=== PATIENT | male | born 1990 | race Asian ===

== ENCOUNTER 2018-09-29 00:02 | Inpatient (IN) | payer MEDICAID ==
[~2018-09-29] VITALS: Ht 175.3 cm; Wt 55.1 kg
[2018-09-29] VITALS (24 sets, daily range): BP systolic 102–148; BP diastolic 59–92
--- NOTE | 2018-09-29 | NUR ---
Received patient in room ICU 2044 as a transfer from [facility]. I have received report from NARCISO Connolly and had the opportunity to ask questions and assume patient care.
[2018-09-29] MEDS ORDERED: potassium Cl 20 mEq SR tablet PO PRN ×2 (00:05)
[2018-09-29] MEDS ORDERED: ondansetron/PF 4mg/2ml inj IV PRN (00:05)
[2018-09-29] MEDS: K, MAG and/or Phos replacement - Verify level? MC SCH ×2 (00:05→08:00)
[2018-09-29] MEDS ORDERED: magnesium hydroxide 30ml (MOM) UD suspension PO PRN (00:05)
[2018-09-29] MEDS ORDERED: acetaminophen 325mg tablet PO PRN ×2 (00:05)
[2018-09-29] MEDS ORDERED: NO HOME MEDS (00:28)
[2018-09-29] MEDS: sodium bicarbonate (8.4%) inj. 75 MEQ in dextrose 5% water 500ml 500 ML IV SCH ×4 (00:40→18:59)
[2018-09-29] MEDS ORDERED: LORazepam 2 mg/ml vial ONE (00:52)
[2018-09-29] MEDS ORDERED: LORazepam 2 mg/ml vial IV PRN (00:55)
[2018-09-29] MEDS ORDERED: LORazepam 2 mg/ml vial IM ONE (00:55)
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
--- NOTE | 2018-09-29 01:00 | NUR ---
Patient had a seizure at this time lasting approximately 60 seconds. Tonic clonic seizure, full body rapid rigid movement, witnessed from start to finish. Postictal period lasting for several minutes. Patient remains nonverbal and disoriented. Appears to be having visual hallucinations, pointing at random areas in the room. Vinayak Contreras NP notified about the seizure, Ativan order received and given to patient. Seizure precautions initiated. Sitter at bedside. Will continue to monitor
[2018-09-29 01:17] LABS: BASOPHILS % (AUTO) 0.2 % (0-1); EOSINOPHILS % (AUTO) 0 % (0-6); HEMATOCRIT 44.9 % (42.0-52.0); HEMOGLOBIN 15.5 g/dl (14.0-17.9); LYMPHOCYTES # (AUTO) 0.9 X10'3 (1.1-4.8); LYMPHOCYTES % (AUTO) 9.6 % (21-51); MEAN CORPUSCULAR HEMOGLOBIN 31.1 PG (27.0-31.0); MEAN CORPUSCULAR HGB CONC 34.5 g/dL (33.0-36.5); MEAN CORPUSCULAR VOLUME 90.3 FL (78-98); MEAN PLATELET VOLUME 8.6 FL (7.4-10.4); MONOCYTES # (AUTO) 0.5 X10'3 (0-0.9); MONOCYTES % (AUTO) 4.6 % (2-12); NEUTROPHILS # (AUTO) 8.4 X10'3 (1.8-7.7); NEUTROPHILS % (AUTO) 85.6 % (42-75); PLATELET COUNT 250 X10'3 (140-440); RED BLOOD COUNT 4.97 X10'6 (4.70-6.10); WHITE BLOOD COUNT 9.8 X10'3 (4.5-11.0)
[2018-09-29 01:26] LABS: PARTIAL THROMBOPLASTIN TIME 25 SECONDS (22-32)
[2018-09-29 01:27] LABS: ALANINE AMINOTRANSFERASE 22 U/L (12-78); ALBUMIN 4.5 G/DL (3.4-5.0); ALBUMIN/GLOBULIN RATIO 1.3 (1.1-1.5); ALKALINE PHOSPHATASE 37 IU/L (46-116); ANION GAP 11 (8-16); ASPARTATE AMINO TRANSFERASE 14 U/L (10-37); BILIRUBIN,TOTAL 0.6 MG/DL (0.1-1.0); BLOOD UREA NITROGEN 8 MG/DL (7-18); BUN/CREATININE RATIO 9.9 (5.4-32.0); CALCIUM 7.9 MG/DL (8.5-10.1); CHLORIDE 109 MMOL/L (99-107); CREATININE 0.81 MG/DL (0.60-1.10); GLUCOSE 126 MG/DL (70-104); MAGNESIUM 1.8 MG/DL (1.5-2.4); POTASSIUM 3.2 MMOL/L (3.5-5.1); SODIUM 145 MMOL/L (135-145); TOTAL CARBON DIOXIDE 25.1 MMOL/L (24-32); eGFR > 90 ML/MIN
[2018-09-29] MEDS: potassium CL 10mEq/100ml bag 100 ML IV PRN ×12 (01:52→23:48)
--- NOTE | 2018-09-29 06:27 | NUR ---
Problems reprioritized. Patient report given, questions answered & plan of care reviewed with NARCISO Prakash.
--- NOTE | 2018-09-29 07:00 | NUR ---
neuro: not verbal at this time, spastic movements noted gross motor, not able to squeeze hands to command.
[2018-09-29] MEDS: pantoprazole 40mg Tablet.DR PO SCH (07:30)
--- NOTE | 2018-09-29 10:00 | NUR ---
poison control center called into unit, for an update, same given.
--- NOTE | 2018-09-29 11:07 | NUR ---
Patient in room ICU 2044. I have received report from night monitor RN and had the opportunity to ask questions and assume patient care.
--- NOTE | 2018-09-29 11:19 | NUR ---
able to squeeze hands to command, verbalizing first and last name, weakly, no other communication noted. will continue to monitor
[2018-09-29 12:37] LABS: ACETAMINOPHEN < 2.0 UG/ML (10-30); ALANINE AMINOTRANSFERASE 26 U/L (12-78); ALBUMIN 4.6 G/DL (3.4-5.0); ALBUMIN/GLOBULIN RATIO 1.5 (1.1-1.5); ALKALINE PHOSPHATASE 33 IU/L (46-116); ANION GAP 9 (8-16); ASPARTATE AMINO TRANSFERASE 55 U/L (10-37); BILIRUBIN,TOTAL 0.6 MG/DL (0.1-1.0); BLOOD UREA NITROGEN 4 MG/DL (7-18); BUN/CREATININE RATIO 4.9 (5.4-32.0); CALCIUM 8.8 MG/DL (8.5-10.1); CHLORIDE 108 MMOL/L (99-107); CREATININE 0.81 MG/DL (0.60-1.10); GLUCOSE 83 MG/DL (70-104); SODIUM 145 MMOL/L (135-145); TOTAL CARBON DIOXIDE 27.7 MMOL/L (24-32); TOTAL PROTEIN 7.6 G/DL (6.4-8.2); eGFR > 90 ML/MIN
[2018-09-29 12:50] LABS: ABG BASE EXCESS 2.3 mmol/L (-2.0-3.0); ABG HCO3 25.5 mmol/L (22.0-26.0); ABG OXYGEN SATURATION 97.5 % (95-98); ABG PCO2 (T) 35.4 mmHg (35.0-45.0); ABG PH (T) 7.475 (7.350-7.450); ABG PO2 (T) 91.2 mmHg (83-108); ALLEN'S TEST Positive; FCOHb 0.3 % (0.5-1.5); FMetHb 0.3 % (0.3-1.12); FO2Hb 96.9 % (94-100); RESPIRATORY RATE (OBSERVED) 18 b/min; TOTAL HEMOGLOBIN 14.8 G/dl (14.0-17.9)
--- NOTE | 2018-09-29 15:38 | NUR ---
Verbalizing more, able to state name, and that is hospital, but then speaks random thoughts outloud, "I;m taking sociology and [place] am [place] [employer]" increased fine motor coordination noted, movement is still somewhat spastic and shaky, starting to "pick" at unseen items in the air and on the bed linens, starting to swing legs out of bed and attempting to get out of bed. sitter remains in attendance at all times.
--- NOTE | 2018-09-29 20:00 | NUR ---
CMP cancelled this hour due to current potassium administration. previous value was 3.0 requiring 8 bags of 10 meq in 100mL. Will due a CMP two hours after the last bag of KCL is administered.
--- NOTE | 2018-09-29 21:50 | NUR ---
Spoke with poison control about the patient this hour. They recommended that we turn off the bicarb drip as the patient's QRS is now under 0.12. I spoke to Vinayak Contreras about this recommendation and he gave an order to turn off the bicarb drip and continue monitoring QRS.
[2018-09-30] VITALS (16 sets, daily range): BP systolic 98–139; BP diastolic 66–91
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
[2018-09-30 03:50] LABS: BASOPHILS % (AUTO) 0.5 % (0-1); EOSINOPHILS % (AUTO) 0.6 % (0-6); HEMATOCRIT 42.8 % (42.0-52.0); HEMOGLOBIN 14.4 g/dl (14.0-17.9); LYMPHOCYTES # (AUTO) 1.6 X10'3 (1.1-4.8); MEAN CORPUSCULAR HEMOGLOBIN 30.4 PG (27.0-31.0); MEAN CORPUSCULAR HGB CONC 33.7 g/dL (33.0-36.5); MEAN CORPUSCULAR VOLUME 90.2 FL (78-98); MEAN PLATELET VOLUME 8.4 FL (7.4-10.4); MONOCYTES % (AUTO) 12.4 % (2-12); NEUTROPHILS # (AUTO) 5.6 X10'3 (1.8-7.7); NEUTROPHILS % (AUTO) 67.5 % (42-75); PLATELET COUNT 249 X10'3 (140-440); RED BLOOD COUNT 4.74 X10'6 (4.70-6.10); WHITE BLOOD COUNT 8.3 X10'3 (4.5-11.0)
[2018-09-30 03:59] LABS: ALANINE AMINOTRANSFERASE 35 U/L (12-78); ALBUMIN 4.4 G/DL (3.4-5.0); ALBUMIN/GLOBULIN RATIO 1.5 (1.1-1.5); ALKALINE PHOSPHATASE 34 IU/L (46-116); ANION GAP 6 (8-16); ASPARTATE AMINO TRANSFERASE 100 U/L (10-37); BILIRUBIN,TOTAL 0.9 MG/DL (0.1-1.0); BLOOD UREA NITROGEN 4 MG/DL (7-18); BUN/CREATININE RATIO 4.5 (5.4-32.0); CALCIUM 8.8 MG/DL (8.5-10.1); CHLORIDE 106 MMOL/L (99-107); CREATININE 0.88 MG/DL (0.60-1.10); GLUCOSE 91 MG/DL (70-104); PHOSPHORUS 5.4 MG/DL (2.3-4.5); POTASSIUM 3.9 MMOL/L (3.5-5.1); SODIUM 142 MMOL/L (135-145); TOTAL CARBON DIOXIDE 30.4 MMOL/L (24-32); TOTAL PROTEIN 7.4 G/DL (6.4-8.2); eGFR > 90 ML/MIN
--- NOTE | 2018-09-30 06:33 | NUR ---
Problems reprioritized. Patient report given, questions answered & plan of care reviewed with NARCISO Glynn.
[2018-09-30] MEDS: pantoprazole 40mg Tablet.DR PO SCH (07:58)
[2018-09-30] MEDS: K, MAG and/or Phos replacement - Verify level? MC SCH (08:00)
--- NOTE | 2018-09-30 11:40 | NUR ---
report called to Nuris STUART
--- NOTE | 2018-09-30 11:40 | NUR ---
Patient in room ICU 2044. I have received report from Renard STUART and had the opportunity to ask questions and assume patient care.
[2018-09-30] MEDS: potassium Cl 20 mEq SR tablet PO SCH ×2 (11:50→19:03)
--- NOTE | 2018-09-30 12:19 | NUR ---
VS: 127/78 (101), 98.4 60 98% on RA, Pt has arrived to U 3014B @ 1210 via wheelchair accompanied by hospital staff, tele box [address], pt tucked into bed, significant other at bedside, sitter at bedside, oriented to room, all needs met at this time. Will continue to monitor.
[2018-09-30 12:25] LABS: ALANINE AMINOTRANSFERASE 37 U/L (12-78); ALBUMIN 4.5 G/DL (3.4-5.0); ALBUMIN/GLOBULIN RATIO 1.4 (1.1-1.5); ALKALINE PHOSPHATASE 38 IU/L (46-116); ANION GAP 10 (8-16); ASPARTATE AMINO TRANSFERASE 85 U/L (10-37); BLOOD UREA NITROGEN 6 MG/DL (7-18); BUN/CREATININE RATIO 6.8 (5.4-32.0); CHLORIDE 105 MMOL/L (99-107); CREATININE 0.88 MG/DL (0.60-1.10); GLUCOSE 83 MG/DL (70-104); POTASSIUM 3.9 MMOL/L (3.5-5.1); SODIUM 141 MMOL/L (135-145); TOTAL CARBON DIOXIDE 26.3 MMOL/L (24-32); TOTAL PROTEIN 7.8 G/DL (6.4-8.2); eGFR > 90 ML/MIN
--- NOTE | 2018-09-30 12:35 | NUR ---
Pt transfered to 3014A per w/c at 1210. Pt in a stable condition upon transfer.
--- NOTE | 2018-09-30 18:00 | NUR ---
Problems reprioritized. Patient report given, questions answered & plan of care reviewed with Melvin STUART .
--- NOTE | 2018-09-30 18:03 | NUR ---
I agree with all of Geetha delarosa's charting
--- NOTE | 2018-09-30 18:18 | NUR ---
Problems reprioritized. Patient report given, questions answered & plan of care reviewed with Melvin STUART.
--- NOTE | 2018-09-30 18:20 | NUR ---
Patient in room PCU 3014. I have received report from Zelalem STUART and isaura and had the opportunity to ask questions and assume patient care.
[2018-09-30 20:31] LABS: ALANINE AMINOTRANSFERASE 34 U/L (12-78); ALBUMIN 4.2 G/DL (3.4-5.0); ALBUMIN/GLOBULIN RATIO 1.4 (1.1-1.5); ALKALINE PHOSPHATASE 35 IU/L (46-116); ANION GAP 6 (8-16); ASPARTATE AMINO TRANSFERASE 73 U/L (10-37); BILIRUBIN,TOTAL 0.8 MG/DL (0.1-1.0); BLOOD UREA NITROGEN 9 MG/DL (7-18); CALCIUM 8.8 MG/DL (8.5-10.1); CHLORIDE 107 MMOL/L (99-107); GLUCOSE 102 MG/DL (70-104); POTASSIUM 4.1 MMOL/L (3.5-5.1); SODIUM 139 MMOL/L (135-145); TOTAL CARBON DIOXIDE 26.4 MMOL/L (24-32); TOTAL PROTEIN 7.3 G/DL (6.4-8.2); eGFR 88 ML/MIN
--- NOTE | 2018-09-30 23:15 | NUR ---
Rene from [facility] has evaluated the patient and has made the decision to not place another hold on the patient. Patient wants to go home tonight if possible. He plans to have his girlfriend come and pick him up. February WIRE WORKER was called and this information was relayed. Awaiting callback. Addendum: 09/30/18 at 2842 by Mikhail Camacho RN Rene phone number is [phone]
--- NOTE | 2018-09-30 23:57 | NUR ---
February RN RESIDENTIAL will leave 1798 active until executive secretary social welfare comes in to re-evaluate and provide information on primary care doctors and mental health services to the patient tomorrow. Renny CANSECO is to be contacted in the AM to possibly cancel the 1798 and about discharge specifics.
[2018-10-01 02:58] VITALS: BP 104/69
--- NOTE | 2018-10-01 05:50 | NUR ---
Girlfriend phone # is . She will drive patient home. It will take her an hour to arrive to the hospital after she is called.
[2018-10-01 05:53] LABS: BASOPHILS # (AUTO) 0.1 X10'3 (0-0.2); BASOPHILS % (AUTO) 0.8 % (0-1); EOSINOPHILS # (AUTO) 0.1 X10'3 (0-0.9); EOSINOPHILS % (AUTO) 1.9 % (0-6); HEMATOCRIT 45.2 % (42.0-52.0); HEMOGLOBIN 15.1 g/dl (14.0-17.9); LYMPHOCYTES % (AUTO) 30.4 % (21-51); MEAN CORPUSCULAR HEMOGLOBIN 30.4 PG (27.0-31.0); MEAN CORPUSCULAR HGB CONC 33.4 g/dL (33.0-36.5); MEAN CORPUSCULAR VOLUME 90.9 FL (78-98); MEAN PLATELET VOLUME 8.5 FL (7.4-10.4); MONOCYTES # (AUTO) 0.7 X10'3 (0-0.9); MONOCYTES % (AUTO) 10.6 % (2-12); NEUTROPHILS # (AUTO) 3.7 X10'3 (1.8-7.7); NEUTROPHILS % (AUTO) 56.3 % (42-75); PLATELET COUNT 238 X10'3 (140-440); RED BLOOD COUNT 4.97 X10'6 (4.70-6.10); WHITE BLOOD COUNT 6.5 X10'3 (4.5-11.0)
--- NOTE | 2018-10-01 06:09 | NUR ---
Problems reprioritized. Patient report given, questions answered & plan of care reviewed with Adam and Sindi RNs. Sitter remains present at bedside. no s/s of distress
[2018-10-01 06:23] LABS: ALANINE AMINOTRANSFERASE 34 U/L (12-78); ALBUMIN 4.1 G/DL (3.4-5.0); ALBUMIN/GLOBULIN RATIO 1.2 (1.1-1.5); ALKALINE PHOSPHATASE 33 IU/L (46-116); ANION GAP 11 (8-16); ASPARTATE AMINO TRANSFERASE 56 U/L (10-37); BILIRUBIN,TOTAL 0.7 MG/DL (0.1-1.0); BLOOD UREA NITROGEN 14 MG/DL (7-18); BUN/CREATININE RATIO 14.7 (5.4-32.0); CALCIUM 8.9 MG/DL (8.5-10.1); CHLORIDE 105 MMOL/L (99-107); CREATININE 0.95 MG/DL (0.60-1.10); GLUCOSE 81 MG/DL (70-104); PHOSPHORUS 4.3 MG/DL (2.3-4.5); POTASSIUM 4.6 MMOL/L (3.5-5.1); SODIUM 141 MMOL/L (135-145); TOTAL CARBON DIOXIDE 24.9 MMOL/L (24-32); TOTAL PROTEIN 7.4 G/DL (6.4-8.2); eGFR > 90 ML/MIN
--- NOTE | 2018-10-01 06:38 | NUR ---
Patient in room PCU 3014. I have received report from Melvin and had the opportunity to ask questions and assume patient care.
[2018-10-01 06:47] VITALS: BP 106/69
[2018-10-01] MEDS: pantoprazole 40mg Tablet.DR PO SCH (07:41)
[2018-10-01] MEDS: K, MAG and/or Phos replacement - Verify level? MC SCH (08:00)
[2018-10-01 11:00] VITALS: BP 117/75
[2018-10-01 12:07] LABS: ALANINE AMINOTRANSFERASE 34 U/L (12-78); ALBUMIN 4.6 G/DL (3.4-5.0); ALBUMIN/GLOBULIN RATIO 1.3 (1.1-1.5); ALKALINE PHOSPHATASE 38 IU/L (46-116); ANION GAP 10 (8-16); ASPARTATE AMINO TRANSFERASE 58 U/L (10-37); BILIRUBIN,TOTAL 0.6 MG/DL (0.1-1.0); BLOOD UREA NITROGEN 13 MG/DL (7-18); BUN/CREATININE RATIO 13.5 (5.4-32.0); CALCIUM 9.2 MG/DL (8.5-10.1); CHLORIDE 102 MMOL/L (99-107); CREATININE 0.96 MG/DL (0.60-1.10); GLUCOSE 104 MG/DL (70-104); POTASSIUM 4.4 MMOL/L (3.5-5.1); SODIUM 139 MMOL/L (135-145); TOTAL PROTEIN 8.2 G/DL (6.4-8.2); eGFR > 90 ML/MIN
--- NOTE | 2018-10-01 12:25 | NUR ---
[facility] documentation: I have reviewed and agree with all interventions, assessments performed and documented by NARCISO Delong.
--- NOTE | 2018-10-01 12:26 | NUR ---
Patient was cleared to discharge home by Dr. Lawson. Patient was alert and stated he felt better and had no intentions of hurting himself. Patient spoke with S.S. regarding follow up appointment at [facility]. Appointment was set for 10/13/18 but they will notify patient with the exact time of appointment. Patient verbalized understanding. Patient left in stable condition accompanied by his girlfriend.
--- NOTE | 2018-10-01 12:26 | NUR ---
[place] Medication Administration: For this medication-pass time frame, all medication were reviewed, dispensed, administered and documented per hospital policy by NARCISO Delong.
== END 2018-10-01 12:24 | disposition home or self-care (01) | DRG 917 ==
LOC: ICU 2S 00:02 → PCU 3S 09-30 12:10
PROVIDERS: ADMIT Internal Medicine Critical Care Medicine; ATTEND Internal Medicine Critical Care Medicine
DX: T45.0X2A Poisoning by antiallergic and antiemetic drugs, intentional self-harm, initial encounter (principal); G92 Toxic encephalopathy; T14.91XA Suicide attempt, initial encounter; G25.3 Myoclonus; F32.9 Major depressive disorder, single episode, unspecified; Y92.89 Other specified places as the place of occurrence of the external cause; Z91.5 Personal history of self-harm
CPT/HCPCS: 36415; 36600; 80053; 80329; 82803; 82948; 83605; 83735; 84100; 85018; 85025; 85610; 85730; 87081; 93005; G0378; J2060; J3480